=== PATIENT | female | born 1995 | race Caucasian/White ===

== ENCOUNTER → 2018-10-22 | Outpatient (CLI) | payer OTHER ==
--- NOTE | 2018-10-22 16:30 | RAD ---
EXAM: Obstetrics sonogram. HISTORY: Size and dates assessment. TECHNIQUE: Sonographic imaging of a gravid uterus was performed. COMPARISON: None. FINDINGS: There is a single intrauterine fetus in breech presentation with a heart rate of 157 bpm. There is normal body motion. respiratory motion and is not seen during the exam. The stomach, kidneys, bladder, spine, brain, heart, facial profile and extremities are unremarkable. There is a three-vessel umbilical cord. The cervix measures 4.4 cm in length. The amniotic fluid index is normal at 13 cm. There is a right lateral placenta without evidence of placenta previa. The biparietal diameter is 6.9 cm, corresponding with 27 weeks and 5 days. The head circumference is 25.0 cm, corresponding with 27 weeks and 1 day. The abdominal circumference is 22.5 cm, corresponding with 26 weeks and 6 days. The femoral length is 5.3 cm, corresponding with 28 weeks and 2 days. The estimated gestational age based on combined ultrasound measurements is 27 weeks and 4 days. The estimated weight is 1076 g and the estimated due date is 01/17/2019. IMPRESSION: Single intrauterine fetus with a heart rate of 157 bpm and an estimated gestational age based on ultrasound measurements of 27 weeks and 4 days. The estimated weight is at the 42nd percentile for gestational age based on LMP. Electronically signed by: Ariana Craven MD (10/22/2018 4:25 PM) [facility]
== END | disposition home or self-care (01) ==
LOC: US 14:28
PROVIDERS: ATTEND Obstetrics & Gynecology
DX: O13.2 Gestational [pregnancy-induced] hypertension without significant proteinuria, second trimester (principal); R03.0 Elevated blood-pressure reading, without diagnosis of hypertension; Z3A.27 27 weeks gestation of pregnancy
CPT/HCPCS: 76805

== ENCOUNTER 2018-12-10 10:38 | Inpatient (IN) | payer OTHER ==
[~2018-12-10] VITALS: Ht 167.6 cm; Wt 95.3 kg
[~2018-12-10 10:38] MED LIST: ceFAZolin 2GM PREMIX 2 GM/50 ML BAG IV ONE
[2018-12-10 11:11] LABS: BILIRUBIN,URINE NEGATIVE (NEG); CLARITY,URINE CLEAR; COLOR,URINE YELLOW; NITRITE,URINE NEGATIVE (NEG); PROTEIN,URINE NEGATIVE (NEG-TRACE); UROBILINOGEN,URINE 0.2 mg/dL (0.2 mg/dL)
[2018-12-10 11:27] LABS: BACTERIA,URINE FEW /HPF (0-FEW); RBC,URINE RARE /HPF (0-2); SQUAMOUS EPITHELIAL CELL,UR MOD /LPF
[2018-12-10 11:35] LABS: BASO # 0.1 x10^3/uL (0.0-0.2); BASO % 0 % (0-3); EOS # 0.3 x10^3/uL (0.0-0.7); EOS % 2 % (0-3); HEMATOCRIT 34.5 % (36.0-47.0); HEMOGLOBIN 11.8 g/dL (12.0-15.5); LYMPH # 2.3 x10^3/uL (1.0-4.8); LYMPH % 16 % (24-48); MEAN CORPUSCULAR HEMOGLOBIN 29 pg (25-35); MEAN CORPUSCULAR HGB CONC 34 g/dL (31-37); MEAN CORPUSCULAR VOLUME 86 fL (79-100); MONO # 0.8 x10^3/uL (0.0-1.1); MONO % 5 % (0-9); NEUT # 11.1 x10^3uL (1.8-7.7); NEUT % 76 % (31-73); PLATELET COUNT 64 x10^3/uL (140-400); RED BLOOD COUNT 4.01 x10^6/uL (3.50-5.40); RED CELL DISTRIBUTION WIDTH 14.8 % (11.5-14.5); WHITE BLOOD COUNT 14.7 x10^3/uL (4.0-11.0)
[2018-12-10 12:04] LABS: CALCIUM 8.2 mg/dL (8.5-10.1); CREATININE 0.7 mg/dL (0.6-1.0); GFR 103.7
[2018-12-10 12:11] LABS: ALBUMIN 2.4 g/dL (3.4-5.0); ALBUMIN/GLOBULIN RATIO 0.7 (1.0-1.7); TOTAL BILIRUBIN 0.5 mg/dL (0.2-1.0); TOTAL PROTEIN 5.8 g/dL (6.4-8.2)
[2018-12-10] MEDS ORDERED: IV RINGERS,LACTATED 1000ML 1,000 ML IV SCH (12:19)
[2018-12-10] MEDS ORDERED: LIDOCAINE 1% PF 30 ML VIAL. INJ PRN ×2 (12:30)
[2018-12-10] MEDS ORDERED: CALCIUM GLUCONATE 1,000 MG/10 ML VIAL. IVP PRN (12:30)
[2018-12-10] MEDS ORDERED: 0.9 % SODIUM CHLORIDE 10 ML DISP.SYRIN. IV PRN ×3 (12:30→15:30)
[2018-12-10] MEDS ORDERED: MAGNESIUM SULFATE 4GM 100 ML IV ONE (12:30)
[2018-12-10] MEDS ORDERED: IBUPROFEN 400 MG TABLET. PO PRN ×2 (12:30→15:30)
[2018-12-10] MEDS ORDERED: MAGNESIUM SULFATE 20GM 500 ML IV SCH (12:30)
[2018-12-10] MEDS ORDERED: OXYTOCIN 30 UNIT/500 ML PREMIX 500 ML IV PRN ×5 (12:30→15:30)
[2018-12-10] MEDS ORDERED: TERBUTALINE 1 MG/ML VIAL. SQ PRN ×2 (12:30)
[2018-12-10] MEDS: IV RINGERS,LACTATED 1000ML 1,000 ML IV SCH (12:44)
--- NOTE | 2018-12-10 12:55 | PDOC1 ---
OB - History Hx of Present Care: Limited Care Ultrasounds: Normal mid trimester US Obstetrical Complications: Pre-eclampsia Medical Complications: None Past Family/Social History * Past Medical, Surgical, Family and Obstetric Histories reviewed from chart. Rubella: Immune RPR/VDRL: Negative GBS Status: Unknown HBsAG: Negative OB - Chief Complaint & HPI Date of Admission: Date of Admission: Dec 10, 2018 at 10:38 Chief Complaint/History : 1 Para: 0 EGA: 34 Reason for admission: induction of labor (severe preeclampsia) Admission Nurse Assessment Rev: Yes OB - Admission Exam Physical Exam HEENT: Normal Heart: Regular Rate Lungs: Clear Abdomen: Gravid, Soft, Tender (RUQ tenderness to palpation) Extremities: Edema Reflexes: Normal Cervical Dilatation: 2cm Effacement: 75% Station: -3 Membranes: Intact Heart Rate: Normal Accelerations: Accelerations Present Decelerations: No decelerations Contractions on Admission: None Text A: 34 wks IUP Severe Preeclampsia P: Admit for IOL pitocin. Give Betamethasone 12 mg IM. Start magnesium sulfate. Treat severe BP Hydralazine. Sono for EFW. RAIZA WATSON Jr, MD Dec 10, 2018 12:55
[2018-12-10] MEDS ORDERED: PENICILLIN G K 5,000,000 UNIT in IV DEXTROSE 5% 100ML 100 ML IV ONE (13:00)
[2018-12-10] MEDS ORDERED: PANTOPRAZOLE IV PUSH 40 MG VIAL. IVP ONE (13:00)
[2018-12-10] MEDS ORDERED: MAGNESIUM SULFATE 2GM 50 ML IV ONE (13:00)
[2018-12-10] MEDS ORDERED: BETAMET ACET&NA PHOS 30 MG/5 ML VIAL. IM SCH (13:00)
[2018-12-10] MEDS ORDERED: KETOROLAC 30 MG/ML VIAL. IV PRN (14:00)
[2018-12-10] MEDS ORDERED: SUCCINYLCHOLINE 200 MG/10 ML VIAL. ONE (14:02)
[2018-12-10] MEDS ORDERED: OXYTOCIN 10 UNIT/ML VIAL. ONE ×2 (14:02→15:09)
[2018-12-10] MEDS ORDERED: fentaNYL PF VIAL 100 MCG/2 ML VIAL ONE (14:02)
[2018-12-10] MEDS ORDERED: PROPOFOL 20 ML IV ONE (14:03)
[2018-12-10] MEDS ORDERED: LIDOCAINE 2% PF 5 ML VIAL. ONE (14:03)
[2018-12-10] MEDS ORDERED: CITRIC ACID/SODIUM CITRATE 30 ML SOLUTION. PO STA (14:09)
[2018-12-10] MEDS ORDERED: CITRIC ACID/SODIUM CITRATE 30 ML SOLUTION. ONE (14:17)
[2018-12-10] MEDS ORDERED: CARBOPROST TROMETHAMINE 250 MCG/ML AMPUL IM ONE (14:18)
[2018-12-10] MEDS ORDERED: ROCURONIUM 50 MG/5 ML VIAL. ONE (14:39)
--- NOTE | 2018-12-10 14:48 | RAD ---
Examination: Obstetric ultrasound limited HISTORY: History of preeclampsia COMPARISON: 10/22/2018 FINDINGS: Single living intrauterine with heart rate of 147 bpm. The cervical length measures 4 cm. The amniotic fluid index measures 9.6 cm. Given LMP 04/10/2018. Clinical age 34 weeks and 6 days with expected date of delivery by LMP 01/15/2019. The biparietal diameter measures 8.4 cm corresponding 34 weeks and 1 day. The head circumference measures 30.4 cm corresponding to 33 weeks and 6 days. Abdominal circumference measures 26 cm corresponding to 30 weeks and 1 day. Femur length is 6.6 cm corresponding 34 weeks and 1 day. The head circumference to abdominal circumference ratio is 1.17. Estimated weight 1911 g. Gestational age by ultrasound is 33 weeks and 1 day. Estimated date of delivery by this ultrasound 01/27/2019. presentation is breech. IMPRESSION: 1. Single living intrauterine slightly smaller than dates. 2. The amniotic fluid index measures 9.6 cm however visually the amniotic fluid looks low. Electronically signed by: Wilfred Centeno MD (12/10/2018 2:45 PM) [id number]
--- NOTE | 2018-12-10 15:16 | PDOC4 ---
OB Operative Note Date: Dec 10, 2018 PRE OP DIAGNOSIS: Breech (Severe Preeclampsia with HELLP syndrome) POST OP DIAGNOSIS: Other (Same) OPERATION PERFORMED: Jose [facility] Surgeon Dr. Brantley Anesthesia: Gen Blood Loss 550 ml Specimen placenta and OB Findings: Position (Breech), Sex (Male), (7/9), Weight (1945 Gram), Nuchal Cord (true knot x 1) Complications none Additional Remarks pt. RAIZA Cid Jr, MD Dec 10, 2018 15:16
--- NOTE | 2018-12-10 15:29 | OP ---
DATE OF SURGERY: PREOPERATIVE DIAGNOSES: 1. 34 weeks intrauterine . 2. Severe preeclampsia with HELLP syndrome. 3. Breech presentation. POSTOPERATIVE DIAGNOSES: 1. 34 weeks intrauterine . 2. Severe preeclampsia with HELLP syndrome. 3. Breech presentation. PROCEDURE: Primary low transverse section. SURGEON: Raiza Brantley MD ANESTHESIA: GETA. ESTIMATED BLOOD LOSS: 550 mL. COMPLICATIONS: None. FINDINGS: Viable male , Apgars 7 and 9, weight 1945 grams. Three-vessel cord placenta with a true knot x 1. SUMMARY: A 34 and 4 weeks intrauterine , who presented to clinic with severe blood pressures. She was then evaluated at Labor and Delivery and found to have severe preeclampsia with HELLP syndrome. Sonogram indicated breech presentation with a weight of 1900. The patient was counseled on the risks, benefits and expectations of delivery and voiced clear understanding to proceed. DESCRIPTION OF PROCEDURE: The patient was taken to surgery suite and placed in dorsal supine position. She was prepped with ChloraPrep and draped in a sterile fashion. After adequate anesthesia, a Pfannenstiel skin incision was made with scalpel down to and through the fascia. The fascia was extended laterally using curved Huffman scissors. The superior edge of fascia was grasped with 2 Mirza clamps, dissected free of the abdominal rectus muscles using blunt dissection along with Bovie cautery. The same process took place inferiorly. The abdominal rectus muscles were then dissected bluntly at the midline. The peritoneum was grasped with 2 hemostats and entered sharply with Metzenbaum scissors. This incision was extended superiorly as well as inferiorly. The Dread ring retractor was placed. A low transverse hysterotomy incision was made with scalpel down to and through the amniotic sac. Hysterotomy incision was extended laterally and superiorly digitally. With the aid of fundal pressure, the buttocks were delivered. The legs were then flexed and delivered. A moist blue towel was wrapped around the infant's waist. With additional fundal pressure, the was delivered down to the subscapular region in which the arms were then flexed and delivered. With the aid of additional fundal pressure, the head was delivered in atraumatic manner. The was suctioned with a bulb syringe orally and nasally, umbilical cord was clamped twice and cut and viable male was handed to waiting nursing staff. Umbilical cord blood was then obtained. Three-vessel cord placenta was delivered manually intact. The uterus was then exteriorized and cleared of clot and debris with moist lap. The hysterotomy incision was reapproximated using 1-0 Vicryl suture in running locked fashion. Uterus palpated firm. Fallopian tubes and ovaries appeared normal bilaterally. Posterior cul-de-sac was cleared of clot and debris with moist lap. The uterus then returned to the abdomen. Pericolic gutters were cleared of clot and debris with moist lap. Hysterotomy incision was reviewed and was hemostatic. Interceed was placed over the hysterotomy incision in an inverted T fashion. The Dread ring retractor was removed. The peritoneum was reapproximated using 1-0 Vicryl suture in a running fashion. Fascia was reapproximated using 0 Vicryl suture in running fashion. Skin was reapproximated using 4-0 Vicryl suture in subcuticular manner. The patient tolerated the procedure well and was taken to recovery room in stable condition. Sponge and needle count correct x 3. RAIZA BRANTLEY MD DR: NABIL/jackie JOB#: [id number] / [id number]
[2018-12-10] MEDS ORDERED: oxyCODONE/APAP 5/325 1 TAB TABLET PO PRN (15:30)
[2018-12-10] MEDS ORDERED: SIMETHICONE 80 MG TAB.CHEW PO PRN (15:30)
[2018-12-10] MEDS ORDERED: MAG HYDROX/ALUMINUM HYD/SIMETH 30 ML ORAL.SUSP PO PRN (15:30)
[2018-12-10] MEDS ORDERED: ZOLPIDEM 5 MG TABLET. PO PRN (15:30)
[2018-12-10] MEDS ORDERED: ONDANSETRON PF 4 MG/2 ML VIAL. IV PRN (15:30)
[2018-12-10] MEDS ORDERED: diphenhydrAMINE ORAL ELIXIR 12.5 MG/5 ML ML PO PRN (15:30)
[2018-12-10 15:59] LABS: BASO # 0.1 x10^3/uL (0.0-0.2); BASO % 0 % (0-3); EOS # 0.2 x10^3/uL (0.0-0.7); EOS % 1 % (0-3); HEMATOCRIT 34.9 % (36.0-47.0); HEMOGLOBIN 11.6 g/dL (12.0-15.5); LYMPH # 2.4 x10^3/uL (1.0-4.8); LYMPH % 10 % (24-48); MEAN CORPUSCULAR HEMOGLOBIN 29 pg (25-35); MEAN CORPUSCULAR HGB CONC 33 g/dL (31-37); MEAN CORPUSCULAR VOLUME 86 fL (79-100); MONO # 0.7 x10^3/uL (0.0-1.1); MONO % 3 % (0-9); NEUT # 19.7 x10^3uL (1.8-7.7); NEUT % 86 % (31-73); PLATELET COUNT 55 x10^3/uL (140-400); RED BLOOD COUNT 4.05 x10^6/uL (3.50-5.40); RED CELL DISTRIBUTION WIDTH 14.8 % (11.5-14.5)
[2018-12-10 16:11] LABS: ALBUMIN 2.1 g/dL (3.4-5.0); ALBUMIN/GLOBULIN RATIO 0.5 (1.0-1.7); CALCIUM 7.9 mg/dL (8.5-10.1); CREATININE 0.5 mg/dL (0.6-1.0); GFR 152.9; POTASSIUM 4.7 mmol/L (3.5-5.1); TOTAL BILIRUBIN 0.6 mg/dL (0.2-1.0); TOTAL PROTEIN 6.2 g/dL (6.4-8.2)
[2018-12-10 16:12] LABS: PROTHROMBIN TIME PATIENT 12.9 SEC (11.7-14.0)
[2018-12-10 16:30] LABS: D-DIMER 8.36 ug/mlFEU (0.00-0.50)
[2018-12-10] MEDS ORDERED: PENICILLIN G K 2,500,000 UNIT in IV DEXTROSE 5% 50 ML IV SCH (17:00)
[2018-12-10 17:13] LABS: % BANDS 2 % (0-9); % BASOS 1 % (0-3); % EOS 1 % (0-5); % LYMPHS 9 % (24-48); % MONOS 4 % (0-10); % SEGS 83 % (35-66)
[2018-12-10 17:15] LABS: PLT ESTIMATE DECREASED (ADEQUATE)
[2018-12-10 17:16] LABS: ANISOCYTOSIS SLIGHT; POIKILOCYTOSIS SLIGHT; POLYCHROMASIA PRESENT
[2018-12-10 18:25] LABS: ALBUMIN 2.2 g/dL (3.4-5.0); ALBUMIN/GLOBULIN RATIO 0.6 (1.0-1.7); CALCIUM 7.7 mg/dL (8.5-10.1); CREATININE 0.6 mg/dL (0.6-1.0); GFR 123.9; POTASSIUM 4.4 mmol/L (3.5-5.1); TOTAL BILIRUBIN 0.9 mg/dL (0.2-1.0); TOTAL PROTEIN 6.1 g/dL (6.4-8.2)
[2018-12-10 19:50] VITALS: BP 135/95
[2018-12-10 20:10] LABS: UR PROTEIN RD 19.1 mg/dL (Not Estab.)
[2018-12-10 20:18] LABS: BASO # 0.1 x10^3/uL (0.0-0.2); BASO % 0 % (0-3); EOS % 0 % (0-3); HEMATOCRIT 32.2 % (36.0-47.0); HEMOGLOBIN 10.8 g/dL (12.0-15.5); LYMPH # 1.3 x10^3/uL (1.0-4.8); LYMPH % 6 % (24-48); MEAN CORPUSCULAR HEMOGLOBIN 29 pg (25-35); MEAN CORPUSCULAR HGB CONC 34 g/dL (31-37); MEAN CORPUSCULAR VOLUME 86 fL (79-100); MONO # 0.4 x10^3/uL (0.0-1.1); MONO % 2 % (0-9); NEUT # 19.7 x10^3uL (1.8-7.7); NEUT % 92 % (31-73); PLATELET COUNT 53 x10^3/uL (140-400); RED BLOOD COUNT 3.77 x10^6/uL (3.50-5.40); RED CELL DISTRIBUTION WIDTH 14.5 % (11.5-14.5); WHITE BLOOD COUNT 21.5 x10^3/uL (4.0-11.0)
[2018-12-10 21:00] VITALS: BP 136/96
[2018-12-10 22:00] VITALS: BP 132/92
[2018-12-10 23:08] VITALS: BP 137/90
[2018-12-10 23:29] LABS: BASO % 0 % (0-3); EOS % 0 % (0-3); HEMATOCRIT 30.8 % (36.0-47.0); HEMOGLOBIN 10.3 g/dL (12.0-15.5); LYMPH # 1.6 x10^3/uL (1.0-4.8); LYMPH % 8 % (24-48); MEAN CORPUSCULAR HEMOGLOBIN 29 pg (25-35); MEAN CORPUSCULAR HGB CONC 34 g/dL (31-37); MEAN CORPUSCULAR VOLUME 85 fL (79-100); MONO # 0.3 x10^3/uL (0.0-1.1); MONO % 2 % (0-9); NEUT # 19.2 x10^3uL (1.8-7.7); NEUT % 91 % (31-73); PLATELET COUNT 59 x10^3/uL (140-400); RED BLOOD COUNT 3.61 x10^6/uL (3.50-5.40); RED CELL DISTRIBUTION WIDTH 14.5 % (11.5-14.5); WHITE BLOOD COUNT 21.2 x10^3/uL (4.0-11.0)
[2018-12-10 23:45] LABS: ALBUMIN/GLOBULIN RATIO 0.5 (1.0-1.7); CALCIUM 7.5 mg/dL (8.5-10.1); CREATININE 0.5 mg/dL (0.6-1.0); GFR 152.9; POTASSIUM 4.5 mmol/L (3.5-5.1); TOTAL BILIRUBIN 0.6 mg/dL (0.2-1.0); TOTAL PROTEIN 5.8 g/dL (6.4-8.2)
[2018-12-10] MEDS: MAGNESIUM SULFATE 20GM 500 ML IV PRN (23:51)
[2018-12-11] VITALS (19 sets, daily range): BP systolic 109–140; BP diastolic 72–95
[2018-12-11 05:47] LABS: BASO % 0 % (0-3); EOS % 0 % (0-3); HEMATOCRIT 28.5 % (36.0-47.0); HEMOGLOBIN 9.8 g/dL (12.0-15.5); LYMPH % 10 % (24-48); MEAN CORPUSCULAR HEMOGLOBIN 30 pg (25-35); MEAN CORPUSCULAR HGB CONC 35 g/dL (31-37); MEAN CORPUSCULAR VOLUME 86 fL (79-100); MONO # 0.6 x10^3/uL (0.0-1.1); MONO % 3 % (0-9); NEUT # 17.9 x10^3uL (1.8-7.7); NEUT % 87 % (31-73); PLATELET COUNT 85 x10^3/uL (140-400); RED BLOOD COUNT 3.34 x10^6/uL (3.50-5.40); RED CELL DISTRIBUTION WIDTH 14.6 % (11.5-14.5); WHITE BLOOD COUNT 20.5 x10^3/uL (4.0-11.0)
[2018-12-11 06:00] LABS: ALBUMIN 1.9 g/dL (3.4-5.0); ALBUMIN/GLOBULIN RATIO 0.5 (1.0-1.7); CREATININE 0.6 mg/dL (0.6-1.0); GFR 123.9; POTASSIUM 4.5 mmol/L (3.5-5.1); TOTAL BILIRUBIN 0.4 mg/dL (0.2-1.0); TOTAL PROTEIN 5.7 g/dL (6.4-8.2)
[2018-12-11] MEDS: MAGNESIUM SULFATE 20GM 500 ML IV PRN (09:58)
[2018-12-11 11:18] LABS: BASO % 0 % (0-3); EOS % 0 % (0-3); HEMATOCRIT 28.8 % (36.0-47.0); HEMOGLOBIN 9.7 g/dL (12.0-15.5); LYMPH # 2.5 x10^3/uL (1.0-4.8); LYMPH % 12 % (24-48); MEAN CORPUSCULAR HEMOGLOBIN 29 pg (25-35); MEAN CORPUSCULAR HGB CONC 34 g/dL (31-37); MEAN CORPUSCULAR VOLUME 86 fL (79-100); MONO # 0.9 x10^3/uL (0.0-1.1); MONO % 4 % (0-9); NEUT % 84 % (31-73); PLATELET COUNT 134 x10^3/uL (140-400); RED BLOOD COUNT 3.37 x10^6/uL (3.50-5.40); RED CELL DISTRIBUTION WIDTH 14.9 % (11.5-14.5); WHITE BLOOD COUNT 21.6 x10^3/uL (4.0-11.0)
[2018-12-11 11:44] LABS: ALBUMIN/GLOBULIN RATIO 0.5 (1.0-1.7); CREATININE 0.6 mg/dL (0.6-1.0); GFR 123.9; POTASSIUM 4.3 mmol/L (3.5-5.1); TOTAL BILIRUBIN 0.3 mg/dL (0.2-1.0); TOTAL PROTEIN 5.9 g/dL (6.4-8.2)
[2018-12-11] MEDS: IV RINGERS,LACTATED 1000ML 1,000 ML IV SCH (12:04)
--- NOTE | 2018-12-11 14:26 | NUR ---
Pt very tired at 1400 check and had to wake up for v/s. She wanted to wait on pumping breast until she slept some more.States percocet really helped better than dinkey engine firer.
--- NOTE | 2018-12-11 16:12 | PDOC ---
OB Progress Note Date of Service 12/11/18 Time of Evaluation 1610 Notes Pt. feeling better. No c/o H/A, CP, SOB or abd pain. BP in normal range. Labs are trending toward normal ranges. Lab Laboratory Tests Test 12/10/18 10:55 12/10/18 11:15 12/10/18 15:35 12/10/18 15:37 Urine Collection Type Unknown Urine Color Yellow Urine Clarity Clear Urine pH 6.0 Urine Specific [place] 1.020 Urine Protein 19.1 mg/dL (Not Estab.) Urine Glucose (UA) Negative mg/dL (NEG) Urine Ketones (Stick) Negative mg/dL (NEG) Urine Blood Negative (NEG) Urine Nitrite Negative (NEG) Urine Bilirubin Negative (NEG) Urine Urobilinogen Dipstick 0.2 mg/dL (0.2 mg/dL) Urine Leukocyte Esterase Moderate (NEG) Urine RBC Rare /HPF (0-2) Urine WBC 1-4 /HPF (0-4) Urine Squamous Epithelial Cells Mod /LPF Urine Bacteria Few /HPF (0-FEW) Urine Creatinine 101.1 mg/dL (Not Estab.) Urine Protein/Creatinine Ratio 189 mg/g creat (0-200) White Blood Count 14.7 x10^3/uL (4.0-11.0) 23.0 x10^3/uL (4.0-11.0) Red Blood Count 4.01 x10^6/uL (3.50-5.40) 4.05 x10^6/uL (3.50-5.40) Hemoglobin 11.8 g/dL (12.0-15.5) 11.6 g/dL (12.0-15.5) Hematocrit 34.5 % (36.0-47.0) 34.9 % (36.0-47.0) Mean Corpuscular Volume 86 fL (79-100) 86 fL (79-100) Mean Corpuscular Hemoglobin 29 pg (25-35) 29 pg (25-35) Mean Corpuscular Hemoglobin Concent 34 g/dL (31-37) 33 g/dL (31-37) Red Cell Distribution Width 14.8 % (11.5-14.5) 14.8 % (11.5-14.5) Platelet Count 64 x10^3/uL (140-400) 55 x10^3/uL (140-400) Neutrophils (%) (Auto) 76 % (31-73) 86 % (31-73) Lymphocytes (%) (Auto) 16 % (24-48) 10 % (24-48) Monocytes (%) (Auto) 5 % (0-9) 3 % (0-9) Eosinophils (%) (Auto) 2 % (0-3) 1 % (0-3) Basophils (%) (Auto) 0 % (0-3) 0 % (0-3) Neutrophils # (Auto) 11.1 x10^3uL (1.8-7.7) 19.7 x10^3uL (1.8-7.7) Lymphocytes # (Auto) 2.3 x10^3/uL (1.0-4.8) 2.4 x10^3/uL (1.0-4.8) Monocytes # (Auto) 0.8 x10^3/uL (0.0-1.1) 0.7 x10^3/uL (0.0-1.1) Eosinophils # (Auto) 0.3 x10^3/uL (0.0-0.7) 0.2 x10^3/uL (0.0-0.7) Basophils # (Auto) 0.1 x10^3/uL (0.0-0.2) 0.1 x10^3/uL (0.0-0.2) Sodium Level 138 mmol/L (136-145) 135 mmol/L (136-145) Potassium Level 4.0 mmol/L (3.5-5.1) 4.7 mmol/L (3.5-5.1) Chloride Level 104 mmol/L (98-107) 103 mmol/L (98-107) Carbon Dioxide Level 23 mmol/L (21-32) 22 mmol/L (21-32) Anion Gap 11 (6-14) 10 (6-14) Blood Urea Nitrogen 7 mg/dL (7-20) 8 mg/dL (7-20) Creatinine 0.7 mg/dL (0.6-1.0) 0.5 mg/dL (0.6-1.0) Estimated GFR (Cockcroft-Gault) 103.7 152.9 BUN/Creatinine Ratio 10 (6-20) 16 (6-20) Glucose Level 74 mg/dL (70-99) 108 mg/dL (70-99) Uric Acid 6.0 mg/dL (2.6-6.0) Calcium Level 8.2 mg/dL (8.5-10.1) 7.9 mg/dL (8.5-10.1) Total Bilirubin 0.5 mg/dL (0.2-1.0) 0.6 mg/dL (0.2-1.0) Aspartate Amino Transf (AST/SGOT) 225 U/L (15-37) 391 U/L (15-37) Alanine Aminotransferase (ALT/SGPT) 363 U/L (14-59) 452 U/L (14-59) Alkaline Phosphatase 238 U/L (46-116) 242 U/L (46-116) Total Protein 5.8 g/dL (6.4-8.2) 6.2 g/dL (6.4-8.2) Albumin 2.4 g/dL (3.4-5.0) 2.1 g/dL (3.4-5.0) Albumin/Globulin Ratio 0.7 (1.0-1.7) 0.5 (1.0-1.7) Magnesium Level 4.6 mg/dL (1.8-2.4) Segmented Neutrophils % 83 % (35-66) Band Neutrophils % 2 % (0-9) Lymphocytes % 9 % (24-48) Monocytes % 4 % (0-10) Eosinophils % 1 % (0-5) Basophils % 1 % (0-3) Platelet Estimate Decreased (ADEQUATE) Large Platelets Present Polychromasia Present Poikilocytosis Slight Anisocytosis Slight Prothrombin Time 12.9 SEC (11.7-14.0) Prothromb Time International Ratio 1.0 (0.8-1.1) Activated Partial Thromboplast Time 36 SEC (24-38) Fibrinogen 593 mg/dL (200-440) D-Dimer (Pat) 8.36 ug/mlFEU (0.00-0.50) Test 12/10/18 18:00 12/10/18 20:10 12/10/18 22:45 12/11/18 05:30 Fibrinogen 579 mg/dL (200-440) 525 mg/dL (200-440) 554 mg/dL (200-440) Sodium Level 134 mmol/L (136-145) 135 mmol/L (136-145) 133 mmol/L (136-145) Potassium Level 4.4 mmol/L (3.5-5.1) 4.5 mmol/L (3.5-5.1) 4.5 mmol/L (3.5-5.1) Chloride Level 101 mmol/L (98-107) 102 mmol/L (98-107) 101 mmol/L (98-107) Carbon Dioxide Level 22 mmol/L (21-32) 24 mmol/L (21-32) 26 mmol/L (21-32) Anion Gap 11 (6-14) 9 (6-14) 6 (6-14) Blood Urea Nitrogen 6 mg/dL (7-20) 7 mg/dL (7-20) 7 mg/dL (7-20) Creatinine 0.6 mg/dL (0.6-1.0) 0.5 mg/dL (0.6-1.0) 0.6 mg/dL (0.6-1.0) Estimated GFR (Cockcroft-Gault) 123.9 152.9 123.9 BUN/Creatinine Ratio 10 (6-20) 14 (6-20) 12 (6-20) Glucose Level 107 mg/dL (70-99) 102 mg/dL (70-99) 96 mg/dL (70-99) Calcium Level 7.7 mg/dL (8.5-10.1) 7.5 mg/dL (8.5-10.1) 7.0 mg/dL (8.5-10.1) Total Bilirubin 0.9 mg/dL (0.2-1.0) 0.6 mg/dL (0.2-1.0) 0.4 mg/dL (0.2-1.0) Aspartate Amino Transf (AST/SGOT) 445 U/L (15-37) 310 U/L (15-37) 200 U/L (15-37) Alanine Aminotransferase (ALT/SGPT) 494 U/L (14-59) 422 U/L (14-59) 359 U/L (14-59) Alkaline Phosphatase 226 U/L (46-116) 210 U/L (46-116) 191 U/L (46-116) Total Protein 6.1 g/dL (6.4-8.2) 5.8 g/dL (6.4-8.2) 5.7 g/dL (6.4-8.2) Albumin 2.2 g/dL (3.4-5.0) 2.0 g/dL (3.4-5.0) 1.9 g/dL (3.4-5.0) Albumin/Globulin Ratio 0.6 (1.0-1.7) 0.5 (1.0-1.7) 0.5 (1.0-1.7) White Blood Count 21.5 x10^3/uL (4.0-11.0) 21.2 x10^3/uL (4.0-11.0) 20.5 x10^3/uL (4.0-11.0) Red Blood Count 3.77 x10^6/uL (3.50-5.40) 3.61 x10^6/uL (3.50-5.40) 3.34 x10^6/uL (3.50-5.40) Hemoglobin 10.8 g/dL (12.0-15.5) 10.3 g/dL (12.0-15.5) 9.8 g/dL (12.0-15.5) Hematocrit 32.2 % (36.0-47.0) 30.8 % (36.0-47.0) 28.5 % (36.0-47.0) Mean Corpuscular Volume 86 fL (79-100) 85 fL (79-100) 86 fL (79-100) Mean Corpuscular Hemoglobin 29 pg (25-35) 29 pg (25-35) 30 pg (25-35) Mean Corpuscular Hemoglobin Concent 34 g/dL (31-37) 34 g/dL (31-37) 35 g/dL (31-37) Red Cell Distribution Width 14.5 % (11.5-14.5) 14.5 % (11.5-14.5) 14.6 % (11.5-14.5) Platelet Count 53 x10^3/uL (140-400) 59 x10^3/uL (140-400) 85 x10^3/uL (140-400) Neutrophils (%) (Auto) 92 % (31-73) 91 % (31-73) 87 % (31-73) Lymphocytes (%) (Auto) 6 % (24-48) 8 % (24-48) 10 % (24-48) Monocytes (%) (Auto) 2 % (0-9) 2 % (0-9) 3 % (0-9) Eosinophils (%) (Auto) 0 % (0-3) 0 % (0-3) 0 % (0-3) Basophils (%) (Auto) 0 % (0-3) 0 % (0-3) 0 % (0-3) Neutrophils # (Auto) 19.7 x10^3uL (1.8-7.7) 19.2 x10^3uL (1.8-7.7) 17.9 x10^3uL (1.8-7.7) Lymphocytes # (Auto) 1.3 x10^3/uL (1.0-4.8) 1.6 x10^3/uL (1.0-4.8) 2.0 x10^3/uL (1.0-4.8) Monocytes # (Auto) 0.4 x10^3/uL (0.0-1.1) 0.3 x10^3/uL (0.0-1.1) 0.6 x10^3/uL (0.0-1.1) Eosinophils # (Auto) 0.0 x10^3/uL (0.0-0.7) 0.0 x10^3/uL (0.0-0.7) 0.0 x10^3/uL (0.0-0.7) Basophils # (Auto) 0.1 x10^3/uL (0.0-0.2) 0.0 x10^3/uL (0.0-0.2) 0.0 x10^3/uL (0.0-0.2) Test 12/11/18 11:05 White Blood Count 21.6 x10^3/uL (4.0-11.0) Red Blood Count 3.37 x10^6/uL (3.50-5.40) Hemoglobin 9.7 g/dL (12.0-15.5) Hematocrit 28.8 % (36.0-47.0) Mean Corpuscular Volume 86 fL (79-100) Mean Corpuscular Hemoglobin 29 pg (25-35) Mean Corpuscular Hemoglobin Concent 34 g/dL (31-37) Red Cell Distribution Width 14.9 % (11.5-14.5) Platelet Count 134 x10^3/uL (140-400) Neutrophils (%) (Auto) 84 % (31-73) Lymphocytes (%) (Auto) 12 % (24-48) Monocytes (%) (Auto) 4 % (0-9) Eosinophils (%) (Auto) 0 % (0-3) Basophils (%) (Auto) 0 % (0-3) Neutrophils # (Auto) 18.0 x10^3uL (1.8-7.7) Lymphocytes # (Auto) 2.5 x10^3/uL (1.0-4.8) Monocytes # (Auto) 0.9 x10^3/uL (0.0-1.1) Eosinophils # (Auto) 0.0 x10^3/uL (0.0-0.7) Basophils # (Auto) 0.0 x10^3/uL (0.0-0.2) Fibrinogen 525 mg/dL (200-440) Sodium Level 136 mmol/L (136-145) Potassium Level 4.3 mmol/L (3.5-5.1) Chloride Level 100 mmol/L (98-107) Carbon Dioxide Level 28 mmol/L (21-32) Anion Gap 8 (6-14) Blood Urea Nitrogen 9 mg/dL (7-20) Creatinine 0.6 mg/dL (0.6-1.0) Estimated GFR (Cockcroft-Gault) 123.9 BUN/Creatinine Ratio 15 (6-20) Glucose Level 105 mg/dL (70-99) Calcium Level 7.0 mg/dL (8.5-10.1) Total Bilirubin 0.3 mg/dL (0.2-1.0) Aspartate Amino Transf (AST/SGOT) 149 U/L (15-37) Alanine Aminotransferase (ALT/SGPT) 324 U/L (14-59) Alkaline Phosphatase 194 U/L (46-116) Total Protein 5.9 g/dL (6.4-8.2) Albumin 2.0 g/dL (3.4-5.0) Albumin/Globulin Ratio 0.5 (1.0-1.7) Laboratory Tests Test 12/10/18 18:00 12/10/18 20:10 12/10/18 22:45 12/11/18 05:30 Fibrinogen 579 mg/dL (200-440) 525 mg/dL (200-440) 554 mg/dL (200-440) Sodium Level 134 mmol/L (136-145) 135 mmol/L (136-145) 133 mmol/L (136-145) Potassium Level 4.4 mmol/L (3.5-5.1) 4.5 mmol/L (3.5-5.1) 4.5 mmol/L (3.5-5.1) Chloride Level 101 mmol/L (98-107) 102 mmol/L (98-107) 101 mmol/L (98-107) Carbon Dioxide Level 22 mmol/L (21-32) 24 mmol/L (21-32) 26 mmol/L (21-32) Anion Gap 11 (6-14) 9 (6-14) 6 (6-14) Blood Urea Nitrogen 6 mg/dL (7-20) 7 mg/dL (7-20) 7 mg/dL (7-20) Creatinine 0.6 mg/dL (0.6-1.0) 0.5 mg/dL (0.6-1.0) 0.6 mg/dL (0.6-1.0) Estimated GFR (Cockcroft-Gault) 123.9 152.9 123.9 BUN/Creatinine Ratio 10 (6-20) 14 (6-20) 12 (6-20) Glucose Level 107 mg/dL (70-99) 102 mg/dL (70-99) 96 mg/dL (70-99) Calcium Level 7.7 mg/dL (8.5-10.1) 7.5 mg/dL (8.5-10.1) 7.0 mg/dL (8.5-10.1) Total Bilirubin 0.9 mg/dL (0.2-1.0) 0.6 mg/dL (0.2-1.0) 0.4 mg/dL (0.2-1.0) Aspartate Amino Transf (AST/SGOT) 445 U/L (15-37) 310 U/L (15-37) 200 U/L (15-37) Alanine Aminotransferase (ALT/SGPT) 494 U/L (14-59) 422 U/L (14-59) 359 U/L (14-59) Alkaline Phosphatase 226 U/L (46-116) 210 U/L (46-116) 191 U/L (46-116) Total Protein 6.1 g/dL (6.4-8.2) 5.8 g/dL (6.4-8.2) 5.7 g/dL (6.4-8.2) Albumin 2.2 g/dL (3.4-5.0) 2.0 g/dL (3.4-5.0) 1.9 g/dL (3.4-5.0) Albumin/Globulin Ratio 0.6 (1.0-1.7) 0.5 (1.0-1.7) 0.5 (1.0-1.7) White Blood Count 21.5 x10^3/uL (4.0-11.0) 21.2 x10^3/uL (4.0-11.0) 20.5 x10^3/uL (4.0-11.0) Red Blood Count 3.77 x10^6/uL (3.50-5.40) 3.61 x10^6/uL (3.50-5.40) 3.34 x10^6/uL (3.50-5.40) Hemoglobin 10.8 g/dL (12.0-15.5) 10.3 g/dL (12.0-15.5) 9.8 g/dL (12.0-15.5) Hematocrit 32.2 % (36.0-47.0) 30.8 % (36.0-47.0) 28.5 % (36.0-47.0) Mean Corpuscular Volume 86 fL (79-100) 85 fL (79-100) 86 fL (79-100) Mean Corpuscular Hemoglobin 29 pg (25-35) 29 pg (25-35) 30 pg (25-35) Mean Corpuscular Hemoglobin Concent 34 g/dL (31-37) 34 g/dL (31-37) 35 g/dL (31-37) Red Cell Distribution Width 14.5 % (11.5-14.5) 14.5 % (11.5-14.5) 14.6 % (11.5-14.5) Platelet Count 53 x10^3/uL (140-400) 59 x10^3/uL (140-400) 85 x10^3/uL (140-400) Neutrophils (%) (Auto) 92 % (31-73) 91 % (31-73) 87 % (31-73) Lymphocytes (%) (Auto) 6 % (24-48) 8 % (24-48) 10 % (24-48) Monocytes (%) (Auto) 2 % (0-9) 2 % (0-9) 3 % (0-9) Eosinophils (%) (Auto) 0 % (0-3) 0 % (0-3) 0 % (0-3) Basophils (%) (Auto) 0 % (0-3) 0 % (0-3) 0 % (0-3) Neutrophils # (Auto) 19.7 x10^3uL (1.8-7.7) 19.2 x10^3uL (1.8-7.7) 17.9 x10^3uL (1.8-7.7) Lymphocytes # (Auto) 1.3 x10^3/uL (1.0-4.8) 1.6 x10^3/uL (1.0-4.8) 2.0 x10^3/uL (1.0-4.8) Monocytes # (Auto) 0.4 x10^3/uL (0.0-1.1) 0.3 x10^3/uL (0.0-1.1) 0.6 x10^3/uL (0.0-1.1) Eosinophils # (Auto) 0.0 x10^3/uL (0.0-0.7) 0.0 x10^3/uL (0.0-0.7) 0.0 x10^3/uL (0.0-0.7) Basophils # (Auto) 0.1 x10^3/uL (0.0-0.2) 0.0 x10^3/uL (0.0-0.2) 0.0 x10^3/uL (0.0-0.2) Test 12/11/18 11:05 White Blood Count 21.6 x10^3/uL (4.0-11.0) Red Blood Count 3.37 x10^6/uL (3.50-5.40) Hemoglobin 9.7 g/dL (12.0-15.5) Hematocrit 28.8 % (36.0-47.0) Mean Corpuscular Volume 86 fL (79-100) Mean Corpuscular Hemoglobin 29 pg (25-35) Mean Corpuscular Hemoglobin Concent 34 g/dL (31-37) Red Cell Distribution Width 14.9 % (11.5-14.5) Platelet Count 134 x10^3/uL (140-400) Neutrophils (%) (Auto) 84 % (31-73) Lymphocytes (%) (Auto) 12 % (24-48) Monocytes (%) (Auto) 4 % (0-9) Eosinophils (%) (Auto) 0 % (0-3) Basophils (%) (Auto) 0 % (0-3) Neutrophils # (Auto) 18.0 x10^3uL (1.8-7.7) Lymphocytes # (Auto) 2.5 x10^3/uL (1.0-4.8) Monocytes # (Auto) 0.9 x10^3/uL (0.0-1.1) Eosinophils # (Auto) 0.0 x10^3/uL (0.0-0.7) Basophils # (Auto) 0.0 x10^3/uL (0.0-0.2) Fibrinogen 525 mg/dL (200-440) Sodium Level 136 mmol/L (136-145) Potassium Level 4.3 mmol/L (3.5-5.1) Chloride Level 100 mmol/L (98-107) Carbon Dioxide Level 28 mmol/L (21-32) Anion Gap 8 (6-14) Blood Urea Nitrogen 9 mg/dL (7-20) Creatinine 0.6 mg/dL (0.6-1.0) Estimated GFR (Cockcroft-Gault) 123.9 BUN/Creatinine Ratio 15 (6-20) Glucose Level 105 mg/dL (70-99) Calcium Level 7.0 mg/dL (8.5-10.1) Total Bilirubin 0.3 mg/dL (0.2-1.0) Aspartate Amino Transf (AST/SGOT) 149 U/L (15-37) Alanine Aminotransferase (ALT/SGPT) 324 U/L (14-59) Alkaline Phosphatase 194 U/L (46-116) Total Protein 5.9 g/dL (6.4-8.2) Albumin 2.0 g/dL (3.4-5.0) Albumin/Globulin Ratio 0.5 (1.0-1.7) Medications Current Medications Magnesium Sulfate 500 ml @ 50 mls/hr Q10H IV ; Start 12/10/18 at 12:30; Stop at 23:42; Status DC Calcium Gluconate (Calcium Gluconate) 1,000 mg 1X PRN PRN IVP MAGNESIUM TOXICITY; Start 12/10/18 at 12:30 Sodium Chloride (Normal Saline Flush) 3 ml QSHIFT PRN IV AFTER MEDS AND BLOOD DRAWS; Start 12/10/18 at 12:30; Stop 12/10/18 at 20:41; Status DC Ringer's Solution 1,000 ml @ 75 mls/hr [id number] IV Last administered on at 12:04; Start 12/10/18 at 12:19 Terbutaline Sulfate (Brethine) 0.25 mg 1X PRN PRN SQ SEE COMMENTS; Start at 12:30; Stop 12/10/18 at 20:41; Status DC Lidocaine HCl (Xylocaine 1% Pf 30ml Vial) 30 ml 1X PRN PRN INJ SEE COMMENTS; Start 12/10/18 at 12:30; Stop 12/10/18 at 20:41; Status DC Oxytocin/Sodium Chloride 500 ml @ 0 mls/hr CONT PRN IV SEE I/O RECORD; Start at 12:30; Stop 12/10/18 at 20:41; Status DC Oxytocin/Sodium Chloride 500 ml @ 0 mls/hr CONT PRN PRN IV Post delivery bleeding; Start 12/10/18 at 12:30; Stop 12/10/18 at 20:41; Status DC Sodium Chloride (Normal Saline Flush) 3 ml QSHIFT PRN IV AFTER MEDS AND BLOOD DRAWS; Start 12/10/18 at 12:30; Stop 12/10/18 at 20:41; Status DC Ringer's Solution 1,000 ml @ 125 mls/hr Q8H IV Last administered on 12/10/18at 19:53; Start 12/10/18 at 12:19; Stop 12/10/18 at 20:41; Status DC Terbutaline Sulfate (Brethine) 0.25 mg 1X PRN PRN SQ SEE COMMENTS; Start at 12:30; Stop 12/10/18 at 20:41; Status DC Lidocaine HCl (Xylocaine 1% Pf 30ml Vial) 30 ml 1X PRN PRN INJ SEE COMMENTS; Start 12/10/18 at 12:30; Stop 12/10/18 at 20:41; Status DC Oxytocin/Sodium Chloride 500 ml @ 0 mls/hr CONT PRN IV SEE I/O RECORD; Start at 12:30; Stop 12/10/18 at 20:41; Status DC Oxytocin/Sodium Chloride 500 ml @ 0 mls/hr CONT PRN PRN IV Post delivery bleeding; Start 12/10/18 at 12:30; Stop 12/10/18 at 20:41; Status DC Ibuprofen (Motrin) 800 mg PRN Q6HRS PRN PO PAIN; Start 12/10/18 at 12:30; Stop 12/11/18 at 12:22; Status DC Magnesium Sulfate 50 ml @ 25 mls/hr 1X ONCE IV Last administered on 12/10/18at 12:44; Start 12/10/18 at 13:00; Stop 12/10/18 at 20:41; Status DC Magnesium Sulfate/ Dextrose 100 ml @ 25 mls/hr 1X ONCE IV Last administered on 12/10/18at 12:43; Start 12/10/18 at 12:30; Stop 12/10/18 at 20:41; Status DC Betamethasone Sodium Phosphate ([place]elestone Soluspan) 12 mg Q24H IM Last administered on 12/10/18at 12:59; Start 12/10/18 at 13:00; Stop 12/10/18 at 20:41 ; Status DC Pantoprazole Sodium (PROTONIX VIAL for IV PUSH) 40 mg 1X ONCE IVP Last administered on 12/10/18at 13:59; Start 12/10/18 at 13:00; Stop 12/10/18 at 20:41 ; Status DC Penicillin G Potassium [id number] unit/Dextrose 100 ml @ 100 mls/hr 1X ONCE IV Last administered on 12/10/18at 13:00; Start 12/10/18 at 13:00; Stop 12/10/18 at 20:41; Status DC Penicillin G Potassium [id number] unit/Dextrose 50 ml @ 100 mls/hr Q4H IV ; Start 12/10/18 at 17:00 Ketorolac Tromethamine (Toradol 30mg Vial) 30 mg PRN Q6HRS PRN IV PAIN; Start 12/10/18 at 14:00; Stop 12/15/18 at 13:59 Fentanyl Citrate (Fentanyl 2ml Vial) 100 mcg STK-MED ONCE .ROUTE ; Start at 14:02; Stop 12/10/18 at 20:41; Status DC Succinylcholine Chloride (Anectine) 200 mg STK-MED ONCE .ROUTE ; Start 12/10/18 at 14:02; Stop 12/10/18 at 20:41; Status DC Oxytocin (Pitocin) 10 unit STK-MED ONCE .ROUTE ; Start 12/10/18 at 14:02; Stop 12/10/18 at 20:41; Status DC Propofol 20 ml @ As Directed STK-MED ONCE IV ; Start 12/10/18 at 14:03; Stop at 20:41; Status DC Lidocaine HCl (Lidocaine Pf 2% Vial) 5 ml STK-MED ONCE .ROUTE ; Start 12/10/18 at 14:03; Stop 12/10/18 at 20:41; Status DC Cefazolin Sodium/ Dextrose 50 ml @ 100 mls/hr 1X ONCE IV ; Start 12/10/18 at 14:15; Stop 12/10/18 at 20:41; Status DC Citric Acid/ Sodium Citrate (Bicitra) 30 ml 1X STAT PO Last administered on at 14:20; Start 12/10/18 at 14:09; Stop 12/10/18 at 20:41; Status DC Citric Acid/ Sodium Citrate (Bicitra) 30 ml STK-MED ONCE .ROUTE ; Start at 14:17; Stop 12/10/18 at 20:41; Status DC Carboprost Tromethamine (Hemabate) 250 mcg STK-MED ONCE IM ; Start 12/10/18 at 14:18; Stop 12/10/18 at 14:19; Status DC Rocuronium [place] (Zemuron) 50 mg STK-MED ONCE .ROUTE ; Start 12/10/18 at 14:39 ; Stop 12/10/18 at 20:41; Status DC Oxytocin (Pitocin) 10 unit STK-MED ONCE .ROUTE ; Start 12/10/18 at 15:09; Stop 12/10/18 at 20:41; Status DC Sodium Chloride (Normal Saline Flush) 3 ml QSHIFT PRN IV AFTER MEDS AND BLOOD DRAWS; Start 12/10/18 at 15:30 Oxytocin/Sodium Chloride 500 ml @ 125 mls/hr CONT PRN IV EXCESSIVE POST- BLEEDING; Start 12/10/18 at 15:30; Stop 12/10/18 at 23:29; Status DC Ibuprofen (Motrin) 800 mg PRN Q4HRS PRN PO INFLAMMATION; Start 12/10/18 at 15: 30 Ondansetron HCl (Zofran) 4 mg PRN Q6HRS PRN IV NAUSEA/VOMITING; Start 12/10/18 at 15:30 Docusate Sodium (Colace) 100 mg PRN BID PRN PO CONSTIPATION; Start 12/10/18 at 15:30 Al Hydroxide/Mg Hydroxide (Mylanta Plus Xs) 30 ml PRN Q4HRS PRN PO HEARTBURN / GAS; Start 12/10/18 at 15:30 Simethicone (Gas-X) 80 mg PRN AFTMEALHC PRN PO GAS / BLOATING; Start 12/10/18 at 15:30 Diphenhydramine HCl (Benadryl Oral Elixir) 12.5 mg PRN Q6HRS PRN PO ITCHING; Start 12/10/18 at 15:30 Ferrous Sulfate (Feosol) 325 mg BIDWMEALS PO ; Start 12/10/18 at 17:00 Zolpidem Tartrate (Ambien) 5 mg PRN QHS PRN PO INSOMNIA, MAY REPEAT X1; Start 12/10/18 at 15:30 Oxycodone/ Acetaminophen (Percocet 5/325) 2 tab PRN Q4HRS PRN PO MODERATE PAIN , SEVERE PAIN Last administered on 12/11/18at 12:33; Start 12/10/18 at 15:30 Fentanyl Citrate 30 ml @ 0 mls/hr CONT PRN PRN IV PER PROTOCOL; Start 12/10/18 at 15:30; Stop 12/10/18 at 18:38; Status DC Fentanyl Citrate 30 ml @ 0 mls/hr CONT PRN PRN IV PER PROTOCOL Last administered on 12/10/18at 19:41; Start 12/10/18 at 18:45 Magnesium Sulfate 500 ml @ 50 mls/hr CONT PRN IV PER PROTOCOL Last administered on 12/11/18at 09:58; Start 12/10/18 at 23:45 Oxycodone/ Acetaminophen (Percocet 5/325) 2 tab PRN Q4HRS PRN PO PAIN; Start at 12:30 Ibuprofen (Motrin) 800 mg PRN Q8HRS PRN PO PAIN; Start 12/11/18 at 12:30 Exam Abd: soft, mild tenderness, fundus firm Bandage removed. Incision site: dry and intact Assessment POD#1 s/p c/s Severe preeclampsia with HELLP syndrome Plan of Care: Continue current Tx, Mgmt RAIZA WATSON Jr, MD Dec 11, 2018 16:12
[2018-12-11] MEDS: DOCUSATE SODIUM 100 MG CAPSULE. PO PRN (21:08)
[2018-12-11] MEDS: FERROUS SULFATE 325 MG TABLET. PO SCH (21:08)
[2018-12-11] MEDS: oxyCODONE/APAP 5/325 1 TAB TABLET PO PRN (21:09)
[2018-12-12 05:13] LABS: BASO % 0 % (0-3); EOS # 0.1 x10^3/uL (0.0-0.7); EOS % 1 % (0-3); HEMATOCRIT 25.2 % (36.0-47.0); HEMOGLOBIN 8.5 g/dL (12.0-15.5); LYMPH % 21 % (24-48); MEAN CORPUSCULAR HEMOGLOBIN 29 pg (25-35); MEAN CORPUSCULAR HGB CONC 34 g/dL (31-37); MEAN CORPUSCULAR VOLUME 87 fL (79-100); MONO # 0.9 x10^3/uL (0.0-1.1); MONO % 5 % (0-9); NEUT # 13.7 x10^3uL (1.8-7.7); NEUT % 73 % (31-73); PLATELET COUNT 170 x10^3/uL (140-400); RED CELL DISTRIBUTION WIDTH 15.1 % (11.5-14.5); WHITE BLOOD COUNT 18.7 x10^3/uL (4.0-11.0)
[2018-12-12 05:33] LABS: ALBUMIN/GLOBULIN RATIO 0.6 (1.0-1.7); CALCIUM 7.4 mg/dL (8.5-10.1); CREATININE 0.6 mg/dL (0.6-1.0); GFR 123.9; POTASSIUM 4.2 mmol/L (3.5-5.1); TOTAL BILIRUBIN 0.2 mg/dL (0.2-1.0); TOTAL PROTEIN 5.3 g/dL (6.4-8.2)
[2018-12-12 06:00] VITALS: BP 122/80
[2018-12-12] MEDS: FERROUS SULFATE 325 MG TABLET. PO SCH ×4 (08:00→17:40)
[2018-12-12] MEDS: DOCUSATE SODIUM 100 MG CAPSULE. PO PRN ×2 (08:13→19:36)
[2018-12-12] MEDS: oxyCODONE/APAP 5/325 1 TAB TABLET PO PRN ×4 (08:14→22:12)
[2018-12-12] MEDS: IBUPROFEN 400 MG TABLET. PO PRN ×2 (08:14→17:40)
[2018-12-12 12:46] VITALS: BP 139/97
--- NOTE | 2018-12-12 12:59 | PDOC ---
OB Progress Note Date of Service 12/12/18 Time of Evaluation 1300 Notes Pt. feeling well. No complaints. Lab Laboratory Tests Test 12/10/18 15:35 12/10/18 15:37 12/10/18 18:00 12/10/18 20:10 Sodium Level 135 mmol/L (136-145) 134 mmol/L (136-145) Potassium Level 4.7 mmol/L (3.5-5.1) 4.4 mmol/L (3.5-5.1) Chloride Level 103 mmol/L (98-107) 101 mmol/L (98-107) Carbon Dioxide Level 22 mmol/L (21-32) 22 mmol/L (21-32) Anion Gap 10 (6-14) 11 (6-14) Blood Urea Nitrogen 8 mg/dL (7-20) 6 mg/dL (7-20) Creatinine 0.5 mg/dL (0.6-1.0) 0.6 mg/dL (0.6-1.0) Estimated GFR (Cockcroft-Gault) 152.9 123.9 BUN/Creatinine Ratio 16 (6-20) 10 (6-20) Glucose Level 108 mg/dL (70-99) 107 mg/dL (70-99) Calcium Level 7.9 mg/dL (8.5-10.1) 7.7 mg/dL (8.5-10.1) Magnesium Level 4.6 mg/dL (1.8-2.4) Total Bilirubin 0.6 mg/dL (0.2-1.0) 0.9 mg/dL (0.2-1.0) Aspartate Amino Transf (AST/SGOT) 391 U/L (15-37) 445 U/L (15-37) Alanine Aminotransferase (ALT/SGPT) 452 U/L (14-59) 494 U/L (14-59) Alkaline Phosphatase 242 U/L (46-116) 226 U/L (46-116) Total Protein 6.2 g/dL (6.4-8.2) 6.1 g/dL (6.4-8.2) Albumin 2.1 g/dL (3.4-5.0) 2.2 g/dL (3.4-5.0) Albumin/Globulin Ratio 0.5 (1.0-1.7) 0.6 (1.0-1.7) White Blood Count 23.0 x10^3/uL (4.0-11.0) 21.5 x10^3/uL (4.0-11.0) Red Blood Count 4.05 x10^6/uL (3.50-5.40) 3.77 x10^6/uL (3.50-5.40) Hemoglobin 11.6 g/dL (12.0-15.5) 10.8 g/dL (12.0-15.5) Hematocrit 34.9 % (36.0-47.0) 32.2 % (36.0-47.0) Mean Corpuscular Volume 86 fL (79-100) 86 fL (79-100) Mean Corpuscular Hemoglobin 29 pg (25-35) 29 pg (25-35) Mean Corpuscular Hemoglobin Concent 33 g/dL (31-37) 34 g/dL (31-37) Red Cell Distribution Width 14.8 % (11.5-14.5) 14.5 % (11.5-14.5) Platelet Count 55 x10^3/uL (140-400) 53 x10^3/uL (140-400) Neutrophils (%) (Auto) 86 % (31-73) 92 % (31-73) Lymphocytes (%) (Auto) 10 % (24-48) 6 % (24-48) Monocytes (%) (Auto) 3 % (0-9) 2 % (0-9) Eosinophils (%) (Auto) 1 % (0-3) 0 % (0-3) Basophils (%) (Auto) 0 % (0-3) 0 % (0-3) Neutrophils # (Auto) 19.7 x10^3uL (1.8-7.7) 19.7 x10^3uL (1.8-7.7) Lymphocytes # (Auto) 2.4 x10^3/uL (1.0-4.8) 1.3 x10^3/uL (1.0-4.8) Monocytes # (Auto) 0.7 x10^3/uL (0.0-1.1) 0.4 x10^3/uL (0.0-1.1) Eosinophils # (Auto) 0.2 x10^3/uL (0.0-0.7) 0.0 x10^3/uL (0.0-0.7) Basophils # (Auto) 0.1 x10^3/uL (0.0-0.2) 0.1 x10^3/uL (0.0-0.2) Segmented Neutrophils % 83 % (35-66) Band Neutrophils % 2 % (0-9) Lymphocytes % 9 % (24-48) Monocytes % 4 % (0-10) Eosinophils % 1 % (0-5) Basophils % 1 % (0-3) Platelet Estimate Decreased (ADEQUATE) Large Platelets Present Polychromasia Present Poikilocytosis Slight Anisocytosis Slight Prothrombin Time 12.9 SEC (11.7-14.0) Prothromb Time International Ratio 1.0 (0.8-1.1) Activated Partial Thromboplast Time 36 SEC (24-38) Fibrinogen 593 mg/dL (200-440) 579 mg/dL (200-440) D-Dimer (Pat) 8.36 ug/mlFEU (0.00-0.50) Test 12/10/18 22:45 12/11/18 05:30 12/11/18 11:05 12/12/18 04:53 White Blood Count 21.2 x10^3/uL (4.0-11.0) 20.5 x10^3/uL (4.0-11.0) 21.6 x10^3/uL (4.0-11.0) 18.7 x10^3/uL (4.0-11.0) Red Blood Count 3.61 x10^6/uL (3.50-5.40) 3.34 x10^6/uL (3.50-5.40) 3.37 x10^6/uL (3.50-5.40) 2.90 x10^6/uL (3.50-5.40) Hemoglobin 10.3 g/dL (12.0-15.5) 9.8 g/dL (12.0-15.5) 9.7 g/dL (12.0-15.5) 8.5 g/dL (12.0-15.5) Hematocrit 30.8 % (36.0-47.0) 28.5 % (36.0-47.0) 28.8 % (36.0-47.0) 25.2 % (36.0-47.0) Mean Corpuscular Volume 85 fL (79-100) 86 fL (79-100) 86 fL (79-100) 87 fL ( 79-100) Mean Corpuscular Hemoglobin 29 pg (25-35) 30 pg (25-35) 29 pg (25-35) 29 pg ( 25-35) Mean Corpuscular Hemoglobin Concent 34 g/dL (31-37) 35 g/dL (31-37) 34 g/dL (31-37) 34 g/dL (31-37) Red Cell Distribution Width 14.5 % (11.5-14.5) 14.6 % (11.5-14.5) 14.9 % (11.5-14.5) 15.1 % (11.5-14.5) Platelet Count 59 x10^3/uL (140-400) 85 x10^3/uL (140-400) 134 x10^3/uL (140-400) 170 x10^3/uL (140-400) Neutrophils (%) (Auto) 91 % (31-73) 87 % (31-73) 84 % (31-73) 73 % (31-73) Lymphocytes (%) (Auto) 8 % (24-48) 10 % (24-48) 12 % (24-48) 21 % (24-48) Monocytes (%) (Auto) 2 % (0-9) 3 % (0-9) 4 % (0-9) 5 % (0-9) Eosinophils (%) (Auto) 0 % (0-3) 0 % (0-3) 0 % (0-3) 1 % (0-3) Basophils (%) (Auto) 0 % (0-3) 0 % (0-3) 0 % (0-3) 0 % (0-3) Neutrophils # (Auto) 19.2 x10^3uL (1.8-7.7) 17.9 x10^3uL (1.8-7.7) 18.0 x10^3uL (1.8-7.7) 13.7 x10^3uL (1.8-7.7) Lymphocytes # (Auto) 1.6 x10^3/uL (1.0-4.8) 2.0 x10^3/uL (1.0-4.8) 2.5 x10^3/uL (1.0-4.8) 4.0 x10^3/uL (1.0-4.8) Monocytes # (Auto) 0.3 x10^3/uL (0.0-1.1) 0.6 x10^3/uL (0.0-1.1) 0.9 x10^3/uL (0.0-1.1) 0.9 x10^3/uL (0.0-1.1) Eosinophils # (Auto) 0.0 x10^3/uL (0.0-0.7) 0.0 x10^3/uL (0.0-0.7) 0.0 x10^3/uL (0.0-0.7) 0.1 x10^3/uL (0.0-0.7) Basophils # (Auto) 0.0 x10^3/uL (0.0-0.2) 0.0 x10^3/uL (0.0-0.2) 0.0 x10^3/uL (0.0-0.2) 0.0 x10^3/uL (0.0-0.2) Fibrinogen 525 mg/dL (200-440) 554 mg/dL (200-440) 525 mg/dL (200-440) 476 mg/dL (200-440) Sodium Level 135 mmol/L (136-145) 133 mmol/L (136-145) 136 mmol/L (136-145) 141 mmol/L (136-145) Potassium Level 4.5 mmol/L (3.5-5.1) 4.5 mmol/L (3.5-5.1) 4.3 mmol/L (3.5-5.1) 4.2 mmol/L (3.5-5.1) Chloride Level 102 mmol/L (98-107) 101 mmol/L (98-107) 100 mmol/L (98-107) 104 mmol/L (98-107) Carbon Dioxide Level 24 mmol/L (21-32) 26 mmol/L (21-32) 28 mmol/L (21-32) 29 mmol/L (21-32) Anion Gap 9 (6-14) 6 (6-14) 8 (6-14) 8 (6-14) Blood Urea Nitrogen 7 mg/dL (7-20) 7 mg/dL (7-20) 9 mg/dL (7-20) 13 mg/dL (7-20) Creatinine 0.5 mg/dL (0.6-1.0) 0.6 mg/dL (0.6-1.0) 0.6 mg/dL (0.6-1.0) 0.6 mg/dL (0.6-1.0) Estimated GFR (Cockcroft-Gault) 152.9 123.9 123.9 123.9 BUN/Creatinine Ratio 14 (6-20) 12 (6-20) 15 (6-20) 22 (6-20) Glucose Level 102 mg/dL (70-99) 96 mg/dL (70-99) 105 mg/dL (70-99) 85 mg/dL (70-99) Calcium Level 7.5 mg/dL (8.5-10.1) 7.0 mg/dL (8.5-10.1) 7.0 mg/dL (8.5-10.1) 7.4 mg/dL (8.5-10.1) Total Bilirubin 0.6 mg/dL (0.2-1.0) 0.4 mg/dL (0.2-1.0) 0.3 mg/dL (0.2-1.0) 0.2 mg/dL (0.2-1.0) Aspartate Amino Transf (AST/SGOT) 310 U/L (15-37) 200 U/L (15-37) 149 U/L (15-37) 76 U/L (15-37) Alanine Aminotransferase (ALT/SGPT) 422 U/L (14-59) 359 U/L (14-59) 324 U/L (14-59) 226 U/L (14-59) Alkaline Phosphatase 210 U/L (46-116) 191 U/L (46-116) 194 U/L (46-116) 176 U/L (46-116) Total Protein 5.8 g/dL (6.4-8.2) 5.7 g/dL (6.4-8.2) 5.9 g/dL (6.4-8.2) 5.3 g/dL (6.4-8.2) Albumin 2.0 g/dL (3.4-5.0) 1.9 g/dL (3.4-5.0) 2.0 g/dL (3.4-5.0) 2.0 g/dL (3.4-5.0) Albumin/Globulin Ratio 0.5 (1.0-1.7) 0.5 (1.0-1.7) 0.5 (1.0-1.7) 0.6 (1.0-1.7 ) Laboratory Tests Test 12/12/18 04:53 White Blood Count 18.7 x10^3/uL (4.0-11.0) Red Blood Count 2.90 x10^6/uL (3.50-5.40) Hemoglobin 8.5 g/dL (12.0-15.5) Hematocrit 25.2 % (36.0-47.0) Mean Corpuscular Volume 87 fL (79-100) Mean Corpuscular Hemoglobin 29 pg (25-35) Mean Corpuscular Hemoglobin Concent 34 g/dL (31-37) Red Cell Distribution Width 15.1 % (11.5-14.5) Platelet Count 170 x10^3/uL (140-400) Neutrophils (%) (Auto) 73 % (31-73) Lymphocytes (%) (Auto) 21 % (24-48) Monocytes (%) (Auto) 5 % (0-9) Eosinophils (%) (Auto) 1 % (0-3) Basophils (%) (Auto) 0 % (0-3) Neutrophils # (Auto) 13.7 x10^3uL (1.8-7.7) Lymphocytes # (Auto) 4.0 x10^3/uL (1.0-4.8) Monocytes # (Auto) 0.9 x10^3/uL (0.0-1.1) Eosinophils # (Auto) 0.1 x10^3/uL (0.0-0.7) Basophils # (Auto) 0.0 x10^3/uL (0.0-0.2) Fibrinogen 476 mg/dL (200-440) Sodium Level 141 mmol/L (136-145) Potassium Level 4.2 mmol/L (3.5-5.1) Chloride Level 104 mmol/L (98-107) Carbon Dioxide Level 29 mmol/L (21-32) Anion Gap 8 (6-14) Blood Urea Nitrogen 13 mg/dL (7-20) Creatinine 0.6 mg/dL (0.6-1.0) Estimated GFR (Cockcroft-Gault) 123.9 BUN/Creatinine Ratio 22 (6-20) Glucose Level 85 mg/dL (70-99) Calcium Level 7.4 mg/dL (8.5-10.1) Total Bilirubin 0.2 mg/dL (0.2-1.0) Aspartate Amino Transf (AST/SGOT) 76 U/L (15-37) Alanine Aminotransferase (ALT/SGPT) 226 U/L (14-59) Alkaline Phosphatase 176 U/L (46-116) Total Protein 5.3 g/dL (6.4-8.2) Albumin 2.0 g/dL (3.4-5.0) Albumin/Globulin Ratio 0.6 (1.0-1.7) Medications Current Medications Magnesium Sulfate 500 ml @ 50 mls/hr Q10H IV ; Start 12/10/18 at 12:30; Stop at 23:42; Status DC Calcium Gluconate (Calcium Gluconate) 1,000 mg 1X PRN PRN IVP MAGNESIUM TOXICITY; Start 12/10/18 at 12:30 Sodium Chloride (Normal Saline Flush) 3 ml QSHIFT PRN IV AFTER MEDS AND BLOOD DRAWS; Start 12/10/18 at 12:30; Stop 12/10/18 at 20:41; Status DC Ringer's Solution 1,000 ml @ 75 mls/hr [id number] IV Last administered on at 12:04; Start 12/10/18 at 12:19; Stop 12/11/18 at 18:46; Status DC Terbutaline Sulfate (Brethine) 0.25 mg 1X PRN PRN SQ SEE COMMENTS; Start at 12:30; Stop 12/10/18 at 20:41; Status DC Lidocaine HCl (Xylocaine 1% Pf 30ml Vial) 30 ml 1X PRN PRN INJ SEE COMMENTS; Start 12/10/18 at 12:30; Stop 12/10/18 at 20:41; Status DC Oxytocin/Sodium Chloride 500 ml @ 0 mls/hr CONT PRN IV SEE I/O RECORD; Start at 12:30; Stop 12/10/18 at 20:41; Status DC Oxytocin/Sodium Chloride 500 ml @ 0 mls/hr CONT PRN PRN IV Post delivery bleeding; Start 12/10/18 at 12:30; Stop 12/10/18 at 20:41; Status DC Sodium Chloride (Normal Saline Flush) 3 ml QSHIFT PRN IV AFTER MEDS AND BLOOD DRAWS; Start 12/10/18 at 12:30; Stop 12/10/18 at 20:41; Status DC Ringer's Solution 1,000 ml @ 125 mls/hr Q8H IV Last administered on 12/10/18at 19:53; Start 12/10/18 at 12:19; Stop 12/10/18 at 20:41; Status DC Terbutaline Sulfate (Brethine) 0.25 mg 1X PRN PRN SQ SEE COMMENTS; Start at 12:30; Stop 12/10/18 at 20:41; Status DC Lidocaine HCl (Xylocaine 1% Pf 30ml Vial) 30 ml 1X PRN PRN INJ SEE COMMENTS; Start 12/10/18 at 12:30; Stop 12/10/18 at 20:41; Status DC Oxytocin/Sodium Chloride 500 ml @ 0 mls/hr CONT PRN IV SEE I/O RECORD; Start at 12:30; Stop 12/10/18 at 20:41; Status DC Oxytocin/Sodium Chloride 500 ml @ 0 mls/hr CONT PRN PRN IV Post delivery bleeding; Start 12/10/18 at 12:30; Stop 12/10/18 at 20:41; Status DC Ibuprofen (Motrin) 800 mg PRN Q6HRS PRN PO PAIN; Start 12/10/18 at 12:30; Stop 12/11/18 at 12:22; Status DC Magnesium Sulfate 50 ml @ 25 mls/hr 1X ONCE IV Last administered on 12/10/18at 12:44; Start 12/10/18 at 13:00; Stop 12/10/18 at 20:41; Status DC Magnesium Sulfate/ Dextrose 100 ml @ 25 mls/hr 1X ONCE IV Last administered on 12/10/18at 12:43; Start 12/10/18 at 12:30; Stop 12/10/18 at 20:41; Status DC Betamethasone Sodium Phosphate ([place]estone Soluspan) 12 mg Q24H IM Last administered on 12/10/18at 12:59; Start 12/10/18 at 13:00; Stop 12/10/18 at 20:41 ; Status DC Pantoprazole Sodium (PROTONIX VIAL for IV PUSH) 40 mg 1X ONCE IVP Last administered on 12/10/18at 13:59; Start 12/10/18 at 13:00; Stop 12/10/18 at 20:41 ; Status DC Penicillin G Potassium 1208962 unit/Dextrose 100 ml @ 100 mls/hr 1X ONCE IV Last administered on 12/10/18at 13:00; Start 12/10/18 at 13:00; Stop 12/10/18 at 20:41; Status DC Penicillin G Potassium [id number] unit/Dextrose 50 ml @ 100 mls/hr Q4H IV ; Start 12/10/18 at 17:00; Stop 12/11/18 at 19:03; Status DC Ketorolac Tromethamine (Toradol 30mg Vial) 30 mg PRN Q6HRS PRN IV PAIN; Start 12/10/18 at 14:00; Stop 12/15/18 at 13:59 Fentanyl Citrate (Fentanyl 2ml Vial) 100 mcg STK-MED ONCE .ROUTE ; Start at 14:02; Stop 12/10/18 at 20:41; Status DC Succinylcholine Chloride (Anectine) 200 mg STK-MED ONCE .ROUTE ; Start 12/10/18 at 14:02; Stop 12/10/18 at 20:41; Status DC Oxytocin (Pitocin) 10 unit STK-MED ONCE .ROUTE ; Start 12/10/18 at 14:02; Stop 12/10/18 at 20:41; Status DC Propofol 20 ml @ As Directed STK-MED ONCE IV ; Start 12/10/18 at 14:03; Stop at 20:41; Status DC Lidocaine HCl (Lidocaine Pf 2% Vial) 5 ml STK-MED ONCE .ROUTE ; Start 12/10/18 at 14:03; Stop 12/10/18 at 20:41; Status DC Cefazolin Sodium/ Dextrose 50 ml @ 100 mls/hr 1X ONCE IV ; Start 12/10/18 at 14:15; Stop 12/10/18 at 20:41; Status DC Citric Acid/ Sodium Citrate (Bicitra) 30 ml 1X STAT PO Last administered on at 14:20; Start 12/10/18 at 14:09; Stop 12/10/18 at 20:41; Status DC Citric Acid/ Sodium Citrate (Bicitra) 30 ml STK-MED ONCE .ROUTE ; Start at 14:17; Stop 12/10/18 at 20:41; Status DC Carboprost Tromethamine (Hemabate) 250 mcg STK-MED ONCE IM ; Start 12/10/18 at 14:18; Stop 12/10/18 at 14:19; Status DC Rocuronium [place] (Zemuron) 50 mg STK-MED ONCE .ROUTE ; Start 12/10/18 at 14:39 ; Stop 12/10/18 at 20:41; Status DC Oxytocin (Pitocin) 10 unit STK-MED ONCE .ROUTE ; Start 12/10/18 at 15:09; Stop 12/10/18 at 20:41; Status DC Sodium Chloride (Normal Saline Flush) 3 ml QSHIFT PRN IV AFTER MEDS AND BLOOD DRAWS; Start 12/10/18 at 15:30 Oxytocin/Sodium Chloride 500 ml @ 125 mls/hr CONT PRN IV EXCESSIVE POST- BLEEDING; Start 12/10/18 at 15:30; Stop 12/10/18 at 23:29; Status DC Ibuprofen (Motrin) 800 mg PRN Q4HRS PRN PO INFLAMMATION Last administered on at 16:33; Start 12/10/18 at 15:30; Stop 12/11/18 at 17:30; Status DC Ondansetron HCl (Zofran) 4 mg PRN Q6HRS PRN IV NAUSEA/VOMITING; Start 12/10/18 at 15:30 Docusate Sodium (Colace) 100 mg PRN BID PRN PO CONSTIPATION Last administered on 12/12/18at 08:13; Start 12/10/18 at 15:30 Al Hydroxide/Mg Hydroxide (Mylanta Plus Xs) 30 ml PRN Q4HRS PRN PO HEARTBURN / GAS; Start 12/10/18 at 15:30 Simethicone (Gas-X) 80 mg PRN AFTMEALHC PRN PO GAS / BLOATING Last administered on 12/11/18at 21:09; Start 12/10/18 at 15:30 Diphenhydramine HCl (Benadryl Oral Elixir) 12.5 mg PRN Q6HRS PRN PO ITCHING; Start 12/10/18 at 15:30 Ferrous Sulfate (Feosol) 325 mg BIDWMEALS PO Last administered on 12/12/18at 08: 13; Start 12/10/18 at 17:00 Zolpidem Tartrate (Ambien) 5 mg PRN QHS PRN PO INSOMNIA, MAY REPEAT X1; Start 12/10/18 at 15:30 Oxycodone/ Acetaminophen (Percocet 5/325) 2 tab PRN Q4HRS PRN PO MODERATE PAIN , SEVERE PAIN Last administered on 12/11/18at 12:33; Start 12/10/18 at 15:30; Stop 12/11/18 at 17:38; Status DC Fentanyl Citrate 30 ml @ 0 mls/hr CONT PRN PRN IV PER PROTOCOL; Start 12/10/18 at 15:30; Stop 12/10/18 at 18:38; Status DC Fentanyl Citrate 30 ml @ 0 mls/hr CONT PRN PRN IV PER PROTOCOL Last administered on 12/10/18at 19:41; Start 12/10/18 at 18:45; Stop 12/11/18 at 18:46 ; Status DC Magnesium Sulfate 500 ml @ 50 mls/hr CONT PRN IV PER PROTOCOL Last administered on 12/11/18at 09:58; Start 12/10/18 at 23:45; Stop 12/11/18 at 18:46 ; Status DC Oxycodone/ Acetaminophen (Percocet 5/325) 2 tab PRN Q4HRS PRN PO PAIN Last administered on 12/12/18at 12:18; Start 12/11/18 at 12:30 Ibuprofen (Motrin) 800 mg PRN Q8HRS PRN PO PAIN Last administered on 12/12/18at 08:14; Start 12/11/18 at 12:30 Exam ABd: soft, non tender, fundus firm INcision site: clean, dry and intact Assessment POD#2 s/p c/s Severe preeclampsia with HELLP syndrome: improving Plan of Care: Continue current Tx, Mgmt RAIZA WATSON Jr, MD Dec 12, 2018 12:59
[2018-12-12] MEDS ORDERED: DIPHTH,PERTUSS(ACELL),TET TOX 0.5 ML DISP.SYRIN. VAX IM ONE (13:45)
[2018-12-12 18:13] VITALS: BP 140/94
[2018-12-12 22:16] VITALS: BP 137/92
[2018-12-13 05:15] VITALS: BP 128/91
[2018-12-13] MEDS: oxyCODONE/APAP 5/325 1 TAB TABLET PO PRN ×2 (05:29→15:50)
[2018-12-13] MEDS: IBUPROFEN 400 MG TABLET. PO PRN ×2 (08:00→15:51)
[2018-12-13] MEDS: DOCUSATE SODIUM 100 MG CAPSULE. PO PRN ×2 (08:00→17:05)
[2018-12-13] MEDS: FERROUS SULFATE 325 MG TABLET. PO SCH ×2 (08:01→17:05)
--- NOTE | 2018-12-13 08:19 | PDOC3 ---
OB DISCHARGE SUMMARY DATE OF ADMISSION: 12/10/18 DATE OF DISCHARGE: 12/13/18 REASON FOR ADMISSION: Other (Severe Preeclampsia with HELLP syndrome at 34 wks IUP and Breech presentation) INTRAPARTUM PROCEDURES: : Low Cerv Trans OPERATIONS: None DISCHARGE DIAGNOSIS: Preclampsia (34 wks gestation, breech) DISCHARGE INFORMATION: Activity (ad sam), Diet (regular), Instructions (pelvic rest x 6 wks) HOSPITAL COURSE 34 wks gestation with severe preeclampsia with HELLP syndrome delivered via section. She recovered well after delivery. RAIZA WATSON Jr, MD Dec 13, 2018 08:19
[2018-12-13] MEDS ORDERED: FERR325T72 PO (08:23)
[2018-12-13] MEDS ORDERED: IBUP-1027 PO (08:23)
[2018-12-13] MEDS ORDERED: DOCU-109 PO (08:23)
--- NOTE | 2018-12-13 08:27 | DISCH ---
DISCHARGE INSTRUCTIONS Condition on Discharge Condition on Discharge: Stable Activity After Discharge Activity Instructions for Disc: Activity as tolerated Lifting Instructions after Dis: No heavy lifting Driving Instructions after Dis: No driving for 2 weeks Diet after Discharge Diet Texture: Regular Contacting the DRJose Maria after DC Call your doctor for: If your condition worsens Follow-Up Follow up with: Dr. Brantley in 2 weeks. RAIZA BRANTLEY Jr, MD Dec 13, 2018 08:27
[2018-12-13 10:00] VITALS: BP 136/92
[2018-12-13 13:30] VITALS: BP 125/89
[2018-12-13 17:07] VITALS: BP 133/95
[2018-12-13 19:30] VITALS: BP 137/95
[2018-12-14 00:45] VITALS: BP 124/84
[2018-12-14] MEDS: oxyCODONE/APAP 5/325 1 TAB TABLET PO PRN ×3 (00:50→19:47)
[2018-12-14] MEDS: IBUPROFEN 400 MG TABLET. PO PRN ×3 (00:50→19:46)
[2018-12-14 05:15] VITALS: BP 115/86
[2018-12-14] MEDS: FERROUS SULFATE 325 MG TABLET. PO SCH ×2 (08:12→17:00)
[2018-12-14] MEDS: DOCUSATE SODIUM 100 MG CAPSULE. PO PRN (08:12)
[2018-12-14 08:15] VITALS: BP 132/80
[2018-12-14 17:00] VITALS: BP 134/89
--- NOTE | 2018-12-14 18:31 | NUR ---
Discharge Discharge instructions given to patient and aunt. No questions or concerns noted. Patient to board, consent signed. Waiting for father of baby, to go home for the evening, but to return in AM to be with baby. Will follow up with DR Brantley in 1 week.
--- NOTE | 2018-12-14 21:04 | NUR ---
Patient was discharged earlier but is staying on under Border Status, her remains in the [facility].
== END 2018-12-14 19:58 | disposition home or self-care (01) | DRG 788 ==
LOC: OBSVTOIN 10:38 → 3 SO LND 10:38 → 3 NORTH 12-11 17:43 → 3 SO LND 12-12 18:01
PROVIDERS: ADMIT Obstetrics & Gynecology; ATTEND Obstetrics & Gynecology
PROC: 10D00Z1 Extraction of Products of Conception, Low, Open Approach (ICD-10-PCS; principal; 2018-12-10)
DX: O14.24 HELLP syndrome, complicating childbirth (principal); O32.1XX0 Maternal care for breech presentation, not applicable or unspecified; O69.2XX0 Labor and delivery complicated by other cord entanglement, with compression, not applicable or unspecified; Z37.0 Single live birth; Z3A.34 34 weeks gestation of pregnancy
CPT/HCPCS: 36415; 76805; 80053; 81001; 82570; 83735; 84156; 84550; 85007; 85025; 85379; 85384; 85610; 85730; 86850; 86900; 86901; 87086; 88307; 90471; 90715; C1781; C9113; G0378; J0330; J0696; J0702; J2001; J2540; J2590; J2704; J3010; J3475; J7120